=== PATIENT | female | born 1970 | race Asian ===

== ENCOUNTER 2016-10-19 14:15 | Emergency (ER) | payer OTHER, BC ==
[2016-10-19 14:30] VITALS: RESP 16
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
[2016-10-19] MEDS ORDERED: IOPAMIDOL (ISOVUE-300) 100 ML BTL ONE (15:20)
[2016-10-19 16:33] VITALS: O2SAT 98
[2016-10-19 16:38] VITALS: BP 130/76; PULSE 70; TEMP 96.8
== END 2016-10-19 16:39 | disposition home or self-care (01) ==
DX: S43.201A Unspecified subluxation of right sternoclavicular joint, initial encounter (principal); S20.211A Contusion of right front wall of thorax, initial encounter; V49.40XA Driver injured in collision with unspecified motor vehicles in traffic accident, initial encounter; Y92.410 Unspecified street and highway as the place of occurrence of the external cause; Y99.8 Other external cause status; Y93.89 Activity, other specified
CPT/HCPCS: 82947-QW; Q9967